=== PATIENT | female | born 1990 | race Caucasian/White ===

== ENCOUNTER 2021-07-02 17:12 | Emergency (ER) | payer BC, OTHER, SELFPAY ==
[2021-07-02 17:37] VITALS: BP 166/73; PULSE 87; TEMP 97.9; BMI 20.8
[2021-07-02] MEDS ORDERED: IBUPROFEN 600 MG TABLET (FP) PO ONE ×2 (17:41→17:46)
== END 2021-07-02 18:44 | disposition home or self-care (01) ==
LOC: JERFT 17:12
DX: R22.42 Localized swelling, mass and lump, left lower limb (principal)
CPT/HCPCS: 73610-TC-LT-FY; 73630-TC-LT; 99283-25

== ENCOUNTER 2022-09-26 15:02 | Emergency (ER) | payer OTHER ==
[2022-09-26 15:07] VITALS: BP 151/84; PULSE 92; RESP 18; TEMP 97.7; BMI 20.2
[2022-09-26 17:28] LABS: BASO % 0.3 % (0-2.0); EOS % 0.1 % (0-4.5); HEMATOCRIT 42.8 % (32.4-45.2); HEMOGLOBIN 13.7 GM/dL (10.7-15.3); LYMPH % 21.1 % (8-40); MCH 30.5 pg (25.7-33.7); MCHC 31.9 g/dl (32.0-36.0); MEAN CELL VOLUME 95.4 fl (80-96); MEAN PLT VOLUME 10.7 fl (7.5-11.1); MONO % 5.2 % (3.8-10.2); NEUT % 73.3 % (42.8-82.8); PLATELET COUNT 191 10^3/uL (134-434); RBC 4.48 M/mm3 (3.60-5.2); WHITE BLOOD COUNT 8.9 K/mm3 (4.0-10.0)
[2022-09-26 17:49] LABS: CALCIUM 9.3 mg/dL (8.5-10.1)
[2022-09-26 17:50] LABS: BLOOD UREA NITROGEN 14.6 mg/dL (7-18)
[2022-09-26 18:21] LABS: CREATININE 0.8 mg/dL (0.55-1.3)
== END 2022-09-26 19:01 | disposition home or self-care (01) ==
LOC: JERFT 15:02
DX: E07.9 Disorder of thyroid, unspecified (principal)
CPT/HCPCS: 36415; 76536-TC; 80048; 84443; 85025; 99284-25